=== PATIENT | female | born 1995 | race Caucasian/White ===

== ENCOUNTER → 2016-09-30 | Emergency (ER) | payer SELFPAY ==
[~2016-09-30] MED LIST: ACET500C5 PO
== END | disposition left against medical advice (07) ==
LOC: E/R 15:56
DX: Z53.21 Procedure and treatment not carried out due to patient leaving prior to being seen by health care provider (principal)

== ENCOUNTER 2018-03-03 22:42 | Emergency (ER) | END 2018-03-04 01:41 | disposition home or self-care (01) ==